=== PATIENT | male | born 1995 | race Caucasian/White ===

== ENCOUNTER 2025-01-08 18:34 | Emergency (ER) | payer SELFPAY ==
--- NOTE | 2025-01-08 18:30 | RT.EKG_ITS ---
APPROVED REPORT Exam: Resting ECG Reason for Exam: chest and lung pain Patient Location: E HR:74 bpm ECG Measurements Heart Rate 74 AXIS FL 148 P 60 QRSd 113 QRS 23 QT 345 T 67 QTc 383 Conclusion Sinus rhythm...normal P axis, V-rate 60- 99 Incomplete right bundle branch block...QRSd >112, terminal axis(90,270)
[2025-01-08 18:36] VITALS: BP 156/93; PULSE 89; RESP 18; TEMP 36.7; O2SAT 97
--- NOTE | 2025-01-08 18:56 | ED.GENADUL_ITS ---
Discharge Plan Disposition Patient Disposition: Home Condition: Stable Discharge Details Clinical Impression: Testicle lump, Bronchitis Primary Care Provider: None,None ED Provider: Ankur Oneill Home Meds and New Rx's Prescriptions: New azithromycin 250 mg tablet 250 mg PO DAILY 4 Days Qty: 4 0RF Rx Instructions: start on day 2 of therapy Discharge Instructions Instructions: Azithromycin (Systemic), How to Perform a Testicular Self-Exam, Bronchitis, Adult ED Additional Instructions: You were seen in the emergency department for your testicular lump for the past 2 months, you have no evidence of testicular torsion or hernia on exam and your urine is not infected, you have a gonorrhea and chlamydia sample that was sent out that should result in 4 to 7 days. We have scheduled you for an ultrasound tomorrow, you need to call first thing and follow the instructions on the sheet to present to the ultrasound department and then check into the ER again for your results. Your COVID and flu swab is negative for your separate ongoing upper respiratory infection for possibly 2 months and your chest x-ray shows bronchitis which we are starting you on an antibiotic for, please pick this up and take this as directed, take Tylenol and ibuprofen for any pains and generalized cold symptoms. Stand Alone Forms: Portal Information Discharge Orders Other Ambulatory Orders: US scrotum (Routine) Timeframe: 1 Day Facility: [facility] - Location: DIAGNOSTIC IMAGING Ordered By: Ankur Oneill HPI General Date/Time Provider Initiated Documentation: 01/08/25 18:45 . HPI Narrative: 30-year-old male presents with left testicular lump ongoing for the past 2 months and a dull intermittent ache, but denies any dysuria hematuria fever flank pain, he has been having a lot of anxiety over this condition and does not have health insurance but he wants that checked out. He also feels like he has been getting over a severe cold for the past 2 months and has fatigue, intermittent nausea and low-grade fevers as well as a cough and sounds slightly congested. He denies any chest pain or shortness of breath, no syncope, denies any hematuria or discharge or severe testicular pain. Related Data Home Medications Medication Instructions Recorded Confirmed azithromycin 250 mg tablet 250 mg PO DAILY 4 days #4 t abs 01/08/25 Previous Rx's Medication Instructions Recorded azithromycin 250 mg tablet 250 mg PO DAILY 4 days #4 t abs 01/08/25 General Stated Complaint: Male Reproductive Problem SACHIN: 3 Review of Systems All systems reviewed & are unremarkable except as noted in HPI and below Exam Narrative Exam Narrative: GENERAL APPEARANCE: Well-nourished, non-toxic, awake and alert, atraumatic, no acute distress. SKIN: Warm, pink, dry, intact, without rashes/lesions/ulcerations. HEAD: Normocephalic, atraumatic, normal hair distribution for gender/age. EYES: Normal conjunctiva, no exudates on lids/lashes. ENT: Nares patent, no circumoral cyanosis, no facial swelling NECK: Supple, trachea midline, painless cervical ROM. LUNGS/CHEST: Lungs CTA bilaterally- no rhonchi/rales/wheezes diffusely, non- labored respirations, normal A/P diameter, symmetrical expansion, no chest wall deformity HEART (CV/PV): Regular rate and rhythm without murmur, no peripheral edema, no JVD. ABDOMEN/: Soft, non-distended, no guarding, normal external genitalia, no palpable bulging inguinal ring with hernia exam, cremasteric reflexes intact, no hard or irregular nodule to the left testicle there is perhaps a subtle round mobile nodule in the posterior left testicle MSK: Normal ROM, no swelling/deformity to bilateral UEs or LEs, moving all extremities without weakness, no cyanosis, spine midline without tenderness, normal curvature. NEURO: Mental Status AAOx4 - alert to person, place, time, events No facial droop, no forehead involvement. Motor: No focal weakness - strength 5/5 in bilateral UEs and LEs, proximal and distal, symmetric. Sensory: sensation intact to light touch globally. Gait normal: patient ambulated without ataxia into ED room. PSYCH: euthymic, cooperative, pleasant, appropriate speech Course Vital Signs Vital signs: Vital Signs Temperature 36.7 C 01/08/25 18:36 Pulse 89 01/08/25 18:36 Respiratory Rate 18 01/08/25 18:36 Blood Pressure 156/93 H 01/08/25 18:36 Pulse Oximetry 97 01/08/25 18:36 Temperature 36.7 C 01/08/25 18:36 Temperature Source Oral 01/08/25 18:36 Pulse 89 01/08/25 18:36 Respiratory Rate 18 01/08/25 18:36 Blood Pressure 156/93 H 01/08/25 18:36 Blood Pressure Position Sitting 01/08/25 18:36 Pulse Oximetry 97 01/08/25 18:36 Oxygen Delivery Method Room Air 01/08/25 18:36 Oxygen Flow Rate 0 01/08/25 18:36 Pain Level 2 01/08/25 18:36 Medical Decision Making This dictation utilizes [id number] dictation software and may contain unedited grammatical errors. 30-year-old male presents with left testicular lump ongoing for the past 2 months and a dull intermittent ache, but denies any dysuria hematuria fever flank pain, he has been having a lot of anxiety over this condition and does not have health insurance but he wants that checked out. He also feels like he has been getting over a severe cold for the past 2 months and has fatigue, intermittent nausea and low-grade fevers as well as a cough and sounds slightly congested. He denies any chest pain or shortness of breath, no syncope, denies any hematuria or discharge or severe testicular pain. Patients' medical history: Negative, otherwise healthy. Family and social history: Noncontributory. Pertinent exam findings / vital signs include lungs CTA, benign cardiopulmonary status, neuro intact, normal external genitalia, no palpable bulging inguinal ring with hernia exam, cremasteric reflexes intact, no hard or irregular nodule to the left testicle there is perhaps a subtle round mobile nodule in the posterior left testicle. Differential / pathologies of concern include testicular cancer, hydrocele, varicocele, epididymitis or orchitis, upper respiratory infection. Diagnostic studies of: - Respiratory PCR swab, UA, x-ray chest, send out gonorrhea chlamydia urine test - Urine is completely benign - Respiratory PCR swab negative - Chest x-ray consistent with bronchitis - Gonorrhea chlamydia pending Interventions of: - Given azithromycin for bronchitis, recommend Tylenol and ibuprofen, ordered return ultrasound tomorrow morning for scrotal ultrasound. ED Course/Assessment/Plan: 30-year-old male presents with 2 months of a testicular lump with intermittent dull aching pain, his urine is benign, he also has a cold as a separate issue that was found to be consistent with bronchitis on chest x-ray which I started him on azithromycin for. He is returning tomorrow for ultrasound of the scrotum and will take Tylenol and ibuprofen in the meantime. Findings not consistent with testicular torsion, respiratory distress, urinary tract infection. Disposition of testicular lump, bronchitis. Patient verbalized understanding of the plan and return to ED criteria and engaged in shared decision making. Medical Records Medical records reviewed: Yes I reviewed the patient's medical records. Imaging Data Radiologic Study: Attestation: I personally reviewed and interpreted this imaging study as follows: Imaging: X-Ray Radiologist's impression: Exam: XR Chest Exam date and time: 01/08/2025 19:52 Age: 30 years old Clinical indication: Cough TECHNIQUE: Imaging protocol: Radiologic exam of the chest. Views: 2 views. COMPARISON: No relevant prior studies available. FINDINGS: Lungs: Mild central interstitial thickening. No airspace consolidation. Pleural spaces: No pleural effusion. No pneumothorax. Heart/Mediastinum: No cardiomegaly. Bones/joints: No acute fracture. IMPRESSION: Interstitial disease suggesting bronchitis. Dictated and Authenticated by: Alessandra Diggs MD. Lab Data Lab results reviewed: Yes I reviewed the patient's lab results. Labs: Laboratory Tests Range/Units 01/08/25 19:22 Urine Color (Yellow) Yellow Urine Clarity (Clear) Clear Urine pH (5-8) 7.0 Ur Specific Holcomb (1.005-1.025) 1.020 Urine Protein (Neg-Trace) mg/dL Negative Urine Ketones (Negative) mg/dL Negative Urine Blood (Negative) Negative Urine Nitrite (Negative) Negative Urine Bilirubin (Negative) Negative Urine Urobilinogen (Up to 0.2) mg/dL 0.2 Ur Leukocyte Esterase (Negative) Negative Urine Glucose (Negative) mg/dL Negative COVID-19 Source Nasopharynx SARS-CoV-2 (PCR) (Negative) Negative Influenza Type A (PCR) (Negative) Negative Influenza Type B (PCR) (Negative) Negative RSV (PCR) (Negative) Negative PFSH All Active Problems (Updated 01/08/25 @ 21:28 by CARISSA Hoskins) Bronchitis (Acute) Testicle lump (Acute) Social History Smoking/Tobacco Use Status: Current every day Tobacco Type: cigarettes and e- cigarettes Smoking risk assessment performed?: Yes Alcohol Intake: former Drug use: Occasionally Substance use type: marijuana Housing: house Do you feel safe at home: Yes Do you feel safe in your relationship?: Yes
--- NOTE | 2025-01-08 19:59 | DI.RAD_ITS ---
Exam(s) XR CHEST 2V PA LATERAL EXAM: XR CHEST 2V PA LATERAL CLINICAL HISTORY: cough. TECHNIQUE: 2D digital imaging was performed. COMPARISON: No exams were available for comparison FINDINGS: 2 views: Heart size is normal. The mediastinum is not widened. Lungs are clear. No infiltrates nor pleural effusions. IMPRESSION: No acute pulmonary findings. DATA REPOSITORY: RADIATION DOSE DELIVERED:
[2025-01-08 20:14] LABS: COVID-19 PCR Negative (Negative); RSV PCR Negative (Negative)
[2025-01-08 20:16] LABS: Glucose Negative (Negative)
--- NOTE | 2025-01-08 20:18 | DI.VRAD_ITS ---
PROCEDURE INFORMATION: Exam: XR Chest Exam date and time: 01/08/2025 19:52 Age: 30 years old Clinical indication: Cough TECHNIQUE: Imaging protocol: Radiologic exam of the chest. Views: 2 views. COMPARISON: No relevant prior studies available. FINDINGS: Lungs: Mild central interstitial thickening. No airspace consolidation. Pleural spaces: No pleural effusion. No pneumothorax. Heart/Mediastinum: No cardiomegaly. Bones/joints: No acute fracture. IMPRESSION: Interstitial disease suggesting bronchitis. Dictated and Authenticated by: Alessandra Diggs MD. Orderin Mai Pascual MD
[2025-01-08] MEDS: Azithromycin 250 MG TAB 500 MG PO (20:37)
[2025-01-08 20:40] VITALS: BP 132/100; PULSE 68; RESP 18; O2SAT 95
[2025-01-12 13:17] LABS: Chlamydia Result Negative (Negative); GC Result Negative (Negative)
== END 2025-01-08 20:42 | disposition home or self-care (01) ==
LOC: ER 20:27
PROVIDERS: Emergency Provider Physician Assistant
DX: N50.89 Other specified disorders of the male genital organs (principal); J20.9 Acute bronchitis, unspecified
CPT/HCPCS: 99284; 99285; 87491; 87591; 87637; 93005; 71046; 81003; 93010

== ENCOUNTER 2025-01-09 08:10 | Emergency (ER) | payer SELFPAY ==
[2025-01-09 08:13] VITALS: BP 154/90; PULSE 71; RESP 18; TEMP 35.9; O2SAT 98
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
[2025-01-09 08:25] VITALS: TEMP 36.6
== END 2025-01-09 08:47 | disposition home or self-care (01) ==
PROVIDERS: Emergency Provider Physician Assistant
DX: N43.3 Hydrocele, unspecified (principal)
CPT/HCPCS: 99282 ×2